=== PATIENT | male | born 1985 | race Caucasian/White ===

== ENCOUNTER 2024-04-27 22:33 | Emergency (ER) | payer OTHER ==
[~2024-04-27] VITALS: Ht 190.5 cm; Wt 95.2 kg
[2024-04-27] MEDS ORDERED: BUPRENORPHINE-1 EACH (23:06)
[2024-04-27] MEDS ORDERED: SUBOXONE 8 MG-1 EACH SL (23:07)
[2024-04-28] MEDS ORDERED: Amoxicillin/Clavulanate K 875 MG Tab PO ONE (00:50)
[2024-04-28] MEDS ORDERED: AMOCLA875 PO (00:57)
== END 2024-04-28 01:03 | disposition home or self-care (01) ==
LOC: ER 22:33
DX: K08.89 Other specified disorders of teeth and supporting structures (principal); Z79.899 Other long term (current) drug therapy
CPT/HCPCS: 99282; A9270